=== PATIENT | male | born 1945 | race Caucasian/White ===

== ENCOUNTER 2016-11-02 09:17 | Emergency (ER) | payer OTHER ==
[2016-11-02 09:56] LABS: MANUAL DIFF NEEDED? NO
[2016-11-02 10:02] LABS: BASO% 0.6 % (0.0-0.8); EOS# 0.36 X1000 (0.0-0.7); EOS% 3.1 % (0.0-10.0); HEMATOCRIT 48.8 % (42.0-52.0); IMM GRAN# 0.04 X1000 (0.0-0.04); IMM GRAN% 0.3 % (0.0-0.5); LYMPH# 2.15 X1000 (1.2-3.4); LYMPH% 18.3 % (20.5-51.1); MCH 33.7 PG (27-31); MCHC 34.8 g/dL (33-37); MCV 96.6 FL (81-99); MONO# 0.98 X1000 (0.11-0.59); MONO% 8.3 % (1.7-9.3); MPV 11.8 FL (7.4-10.4); NEUT% 69.4 % (42.2-75.2); PLT 172 X1000 (130-400); RBC 5.05 XMIL (4.7-6.1)
[2016-11-02 10:35] LABS: AGAP 13; ALBUMIN 4.1 g/dL (3.5-5.0); ALKALINE PHOSPHATASE 90 U/L (32-122); AMYLASE 87 U/L (20-200); BUN 9 mg/dL (8-22); CALCIUM 9.5 mg/dL (8.8-10.2); CHLORIDE 105 mmol/L (98-107); COSMO 286; GOT 34 U/L (10-34); GPT 39 U/L (10-44); LIPASE 59 U/L (13-60); POTASSIUM 4.4 mmol/L (3.5-5.1); SODIUM 142 mmol/L (136-145); TCO2 24 mmol/L (25-35); TOTAL BILIRUBIN 1.03 mg/dL (0.20-1.00); TOTAL PROTEIN 7.2 g/dL (6.3-8.3)
[2016-11-02] MEDS ORDERED: PROTONIX IV ONE (10:54)
[2016-11-02] MEDS ORDERED: SODIUM CHLORIDE 0.9% INJ ONE (10:54)
[2016-11-02] MEDS ORDERED: ZOFRAN IV ONE (10:54)
[2016-11-02] MEDS ORDERED: MORPHINE IV ONE ×2 (10:54→14:22)
--- NOTE | 2016-11-02 11:10 | PROVIDER DOCUMENTATION ---
HPI-Abdominal Pain/GI Problem - General Chief Complaint: General Adult Stated Complaint: HEADACHE/STOMACH PROBLEMS Time Seen by Provider: 11/02/16 10:30 Source: patient Allergies/Adverse Reactions: Patient Allergies Allergy/AdvReac Type Severity Reaction Status Date / Time Penicillins Allergy Unknown Unknown Verified 11/02/16 11:03 Home Medications: Home Medication List Medication Instructions Recorded Confirmed Last Taken Type Acebutolol HCl 400 mg PO DAILY 05/10/13 11/02/16 11/02/16 History Dutasteride [Avodart] 0.5 mg PO DAILY 05/10/13 11/02/16 11/02/16 History LISINOpril [Prinivil] 10 mg PO DAILY 05/10/13 11/02/16 11/02/16 History Levothyroxine [Synthroid] 125 microgm PO DAILY 05/10/13 11/02/16 11/02/16 History Metformin 500 mg PO DAILY 05/10/13 11/02/16 11/02/16 History Montelukast [Singulair] 10 mg PO DAILY 05/10/13 11/02/16 11/02/16 History Omeprazole 20 mg PO DAILY 05/10/13 11/02/16 11/02/16 History Meloxicam [Mobic] 7.5 mg PO DAILY 10/18/15 11/02/16 11/02/16 History Fexofenadine [Leda] 180 mg PO DAILY 04/20/16 11/02/16 11/02/16 History Docusate Sodium [Colace] 100 mg PO BID #60 capsule 04/22/16 11/02/16 11/02/16 Rx Ondansetron [Zofran] 4 mg PO Q6H PRN PRN #20 tablet 11/02/16 Unknown Rx Sucralfate [Carafate] 1 gm PO 4XDAY #40 tablet 11/02/16 Unknown Rx - History of Present Illness-ABD Nature of Presenting Problems: 71 y/o M with history of HTN, DM, GERD, hypothyroidism, diverticulitis, gastritis, seasonal allergies presents with complaints of ANTONIO x 3 days and epigastric pain x 2 weeks. Epigastric pain x 2 weeks has been intermittent and worse with eating. He reports taking NSAIDs over the past several months since having a Right TKA. He d/c'd NSAIDs 6 days ago. He saw his GI, Dr. Caba, who rx'd Cipro and Flagyl. He d/c'd flagyl at the recommendation of PCP, which did help some with belching and stomach discomfort. Associated symptoms include loose stools, intermittent black stools, and nausea. Denies vomiting, fever. Last BM this morning was loose. He is not on any blood thinning medications. ANTONIO x 3 days is described as intermittent aching sensation across forehead. States the ANTONIO is worse at night and with bending over. He reports some sneezing and intermittent vertigo with certain positions over the past several days as well. Denies any numbness, weakness, history of CVA, head trauma. Abdominal Pain Onset Location: reports: epigastric Pain Radiation: reports: no radiation Quality of Pain: reports: aching Severity in ED: reports: moderate Onset/Duration: reports: other (2 weeks) Timing: reports: still present, intermittent Activities at Onset: reports: other (NSAIDs) Exposure to sick contacts?: No Modifying Factors: improves with: nothing Associated Symptoms: reports: dizziness (vertigo), nausea. denies: chest pain, cough, diaphoresis, diarrhea, fever/chills, sinus congestion/drainage, sensory/ motor loss, vomiting, weakness, trouble walking Last BM: this morning Dark Stools Present?: reports: none noticed Rectal Bleeding: reports: none Rectal Pain: reports: none Emesis Description: reports: none Review of Systems - Adult - REVIEW OF SYSTEMS - ADULT Constitutional: reports: no symptoms reported. denies: chills, fever Eyes: reports: no symptoms reported. denies: decreased vision, blurred vision, double vision Ears, Nose, Mouth & Throat: reports: other (sneezing, history of seasonal allergies). denies: ear pain, hearing loss, tinnitus Cardiovascular: reports: no symptoms reported. denies: chest pain Respiratory: reports: no symptoms reported. denies: cough, shortness of breath , wheezing Gastrointestinal: reports: see HPI Genitourinary: reports: no symptoms reported. denies: dysuria, flank pain, hematuria Musculoskeletal: reports: no symptoms reported. denies: bone pain, back pain Integumentary: reports: no symptoms reported. denies: itching, rash Neurological: reports: dizziness/vertigo, headache/migraines. denies: loss of balance, numbness, paresthesia, seizure, slurred speech, syncope, tremors Psychiatric: reports: no symptoms reported Endocrine: reports: no symptoms reported Hematologic/Lymphatic: reports: no symptoms reported Allergic/Immunologic: reports: allergic rhinitis All Other Systems: Reviewed and Negative Past History - Adult - PAST MEDICAL HISTORY-ADULT Review of Records: reports: Nursing Assessment Review, Medications Reviewed Cardiovascular: reports: HTN, hyperlipidemia Respiratory: reports: asthma Endocrine/Immune: reports: thyroid disorder - PRIOR SURGERIES/PROCEDURES Surgical/Procedure History: reports: EGD, colonoscopy, orthopedic (extremity), back/neck - IMMUNIZATION STATUS Childhood Immunizations: See Nurse Assessment Flu Vaccine: See Nurse Assessment - FAMILY HISTORY Family History: reviewed, not pertinent Physical Exam-General - PHYSICAL EXAM-ADULT Initial Vital Signs Reviewed: Yes - CONSTITUTIONAL General Appearance: appears well, alert, no apparent distress - EYES Eyes: PERRL/EOMI, pink conjunctivae - HEAD, EARS, NOSE, MOUTH & THROAT HENMT: normocephalic/atraumatic, moist mucous membranes, normal ENT inspection, other (vertigo reproducible with moving patient to supine position) - NECK Neck: non-tender, full range of motion, supple - RESPIRATORY Respiratory: chest non-tender, lungs clear, normal breath sounds, no pleuratic chest pain, no respiratory distress, no accessory muscle use - CARDIOVASCULAR Cardiovascular: normal peripheral pulses, regular rate, rhythm, no edema, no gallop, no JVD - GASTROINTESTINAL (ABDOMEN) Abdominal Exam: normal bowel sounds, soft, other (epigastric tenderness (mild)) - LYMPHATIC Lymphatic: no adenopathy - MUSCULOSKELETAL Back Exam: normal inspection, no CVA tenderness, no vertebral tenderness Extremity: normal range of motion, non-tender, normal gait, normal inspection, no pedal edema, no calf tenderness, normal capillary refill - SKIN Integumentary: normal color, normal turgor, warm/dry - NEUROLOGIC Neurologic: planning specialist II-XII nml as tested, grossly normal, no motor/sensory deficits . negative: abnormal gait, aphasia, EOM palsy, facial droop, focal weakness, motor weakness, sensory deficit - PSYCHIATRIC Psych/Mental Status: normal mood/affect, normal thought content, normal thought process, oriented x 3 Progress - PLAN OF CARE/RESULTS Progress/Plan/Lab Results: Laboratory Tests 11/02/16 11/02/16 11/02/16 09:35 09:35 09:35 WBC 11.74 H RBC 5.05 Hgb 17.0 Hct 48.8 MCV 96.6 MCH 33.7 H MCHC 34.8 RDW Std Deviation 12.8 Plt Count 172 MPV 11.8 H Immature Gran % (Auto) 0.3 Neut % (Auto) 69.4 Lymph % (Auto) 18.3 L [place] % (Auto) 8.3 Eos % (Auto) 3.1 Baso % (Auto) 0.6 Immature Gran # (Auto) 0.04 Neut # (Auto) 8.14 H Lymph # (Auto) 2.15 [place] # (Auto) 0.98 H Eos # (Auto) 0.36 Baso # (Auto) 0.07 Sodium 142 Potassium 4.4 Chloride 105 Carbon Dioxide 24 L Anion Gap 13 BUN 9 Creatinine 0.8 Estimated GFR/1.73 m2 > 60 BUN/Creatinine Ratio 11 Glucose 181 H Calculated Osmolality 286 Calcium 9.5 Total Bilirubin 1.03 H AST 34 ALT 39 Alkaline Phosphatase 90 Troponin T < 0.010 Total Protein 7.2 Albumin 4.1 Globulin 3.1 Albumin/Globulin Ratio 1.3 Amylase 87 Lipase 59 Urine Source Urine Color Urine Turbidity Urine pH Ur Specific [place] Urine Protein Ur Glucose (Stick) Ur Ketones (Stick) Urine Blood Urine Nitrite Urine Bilirubin Urobilinogen Dipstick Urine Leukocytes Urine WBC (Auto) Urine RBC (Auto) U Epithel Cells (Auto) Urine Bacteria (Auto) 11/02/16 12:24 WBC RBC Hgb Hct MCV MCH MCHC RDW Std Deviation Plt Count MPV Immature Gran % (Auto) Neut % (Auto) Lymph % (Auto) [place] % (Auto) Eos % (Auto) Baso % (Auto) Immature Gran # (Auto) Neut # (Auto) Lymph # (Auto) [place] # (Auto) Eos # (Auto) Baso # (Auto) Sodium Potassium Chloride Carbon Dioxide Anion Gap BUN Creatinine Estimated GFR/1.73 m2 BUN/Creatinine Ratio Glucose Calculated Osmolality Calcium Total Bilirubin AST ALT Alkaline Phosphatase Troponin T Total Protein Albumin Globulin Albumin/Globulin Ratio Amylase Lipase Urine Source CLEAN CATCH Urine Color YELLOW Urine Turbidity CLEAR Urine pH 5.5 Ur Specific [place] 1.014 Urine Protein NEGATIVE Ur Glucose (Stick) NEGATIVE Ur Ketones (Stick) NEGATIVE Urine Blood NEGATIVE Urine Nitrite NEGATIVE Urine Bilirubin NEGATIVE Urobilinogen Dipstick NORMAL Urine Leukocytes NEGATIVE Urine WBC (Auto) <10 Urine RBC (Auto) <10 U Epithel Cells (Auto) <10 Urine Bacteria (Auto) NEGATIVE Orders Category Date Time Status Orthostatic Vital Signs NOW Care 11/02/16 10:54 Active Saline Loc DIRECTED Care 11/02/16 09:32 Active NPO Diet 11/02/16 09:[address] ABD/PELVIS W/ IV CONT ONLY [CT] Stat Exams 11/02/16 11:17 Draft HEAD W/O CONTRAST [CT] Stat Exams 11/02/16 10:52 Taken AMYLASE [CHEM] Stat Lab 11/02/16 09:35 Completed CBC WITH ELECTRONIC DIFF [HEME] Stat Lab 11/02/16 09:35 Completed COMPREHENSIVE METABOLIC PANEL [CHEM] Stat Lab 11/02/16 09:35 Completed LIPASE [CHEM] Stat Lab 11/02/16 09:35 Completed OCCULT BLOOD SCREENING [STOOL] Stat Lab 11/02/16 10:30 Completed TROPONIN T Stat Lab 11/02/16 09:35 Completed URINALYSIS W/POSS RFLX CULT [URINALYSIS] Stat Lab 11/02/16 12:24 Completed Morphine Med 11/02/16 10:54 Discontinued 2 mg IV NOW ONE Ondansetron [Zofran] Med 11/02/16 10:54 Discontinued 4 mg IV NOW ONE Pantoprazole [Protonix] Med 11/02/16 10:54 Discontinued 40 mg IV NOW ONE Sodium Chloride 0.9% Med 11/02/16 10:54 Discontinued 10 ml INJ NOW ONE EKG [EKG] Stat Ther 11/02/16 10:55 Ordered Vital Signs Temp Pulse Pulse Pulse Pulse Resp BP 11/02/16 11:28 78 78 67 11/02/16 09:29 98.2 F 73 20 137/98 BP BP BP Pulse Ox 11/02/16 11:28 155/81 141/101 141/92 11/02/16 09:29 98 Penicillins Allergy (Unknown, Verified 11/02/16 11:03) Unknown Acebutolol HCl 400 mg PO DAILY 05/10/13 Dutasteride [Avodart] 0.5 mg PO DAILY 05/10/13 LISINOpril [Prinivil] 10 mg PO DAILY 05/10/13 Levothyroxine [Synthroid] 125 microgm PO DAILY 05/10/13 Metformin 500 mg PO DAILY 05/10/13 Montelukast [Singulair] 10 mg PO DAILY 05/10/13 Omeprazole 20 mg PO DAILY 05/10/13 Meloxicam [Mobic] 7.5 mg PO DAILY 10/18/15 Fexofenadine [Leda] 180 mg PO DAILY 04/20/16 Docusate Sodium [Colace] 100 mg PO BID #60 capsule 04/22/16 Dietary Diet NPO Start TueNov 02 0932 Laboratory 11/02/16 11/02/16 11/02/16 12:24 09:35 09:35 WBC 11.74 H RBC 5.05 Hgb 17.0 Hct 48.8 MCV 96.6 MCH 33.7 H MCHC 34.8 RDW Std Deviation 12.8 Plt Count 172 MPV 11.8 H Immature Gran % (Auto) 0.3 Neut % (Auto) 69.4 Lymph % (Auto) 18.3 L [place] % (Auto) 8.3 Eos % (Auto) 3.1 Baso % (Auto) 0.6 Immature Gran # (Auto) 0.04 Neut # (Auto) 8.14 H Lymph # (Auto) 2.15 [place] # (Auto) 0.98 H Eos # (Auto) 0.36 Baso # (Auto) 0.07 Sodium Potassium Chloride Carbon Dioxide Anion Gap BUN Creatinine Estimated GFR/1.73 m2 BUN/Creatinine Ratio Glucose Calculated Osmolality Calcium Total Bilirubin AST ALT Alkaline Phosphatase Troponin T < 0.010 Total Protein Albumin Globulin Albumin/Globulin Ratio Amylase Lipase Urine Source CLEAN CATCH Urine Color YELLOW Urine Turbidity CLEAR Urine pH 5.5 Ur Specific [place] 1.014 Urine Protein NEGATIVE Ur Glucose (Stick) NEGATIVE Ur Ketones (Stick) NEGATIVE Urine Blood NEGATIVE Urine Nitrite NEGATIVE Urine Bilirubin NEGATIVE Urobilinogen Dipstick NORMAL Urine Leukocytes NEGATIVE Urine WBC (Auto) <10 Urine RBC (Auto) <10 U Epithel Cells (Auto) <10 Urine Bacteria (Auto) NEGATIVE 11/02/16 09:35 WBC RBC Hgb Hct MCV MCH MCHC RDW Std Deviation Plt Count MPV Immature Gran % (Auto) Neut % (Auto) Lymph % (Auto) [place] % (Auto) Eos % (Auto) Baso % (Auto) Immature Gran # (Auto) Neut # (Auto) Lymph # (Auto) [place] # (Auto) Eos # (Auto) Baso # (Auto) Sodium 142 Potassium 4.4 Chloride 105 Carbon Dioxide 24 L Anion Gap 13 BUN 9 Creatinine 0.8 Estimated GFR/1.73 m2 > 60 BUN/Creatinine Ratio 11 Glucose 181 H Calculated Osmolality 286 Calcium 9.5 Total Bilirubin 1.03 H AST 34 ALT 39 Alkaline Phosphatase 90 Troponin T Total Protein 7.2 Albumin 4.1 Globulin 3.1 Albumin/Globulin Ratio 1.3 Amylase 87 Lipase 59 Urine Source Urine Color Urine Turbidity Urine pH Ur Specific [place] Urine Protein Ur Glucose (Stick) Ur Ketones (Stick) Urine Blood Urine Nitrite Urine Bilirubin Urobilinogen Dipstick Urine Leukocytes Urine WBC (Auto) Urine RBC (Auto) U Epithel Cells (Auto) Urine Bacteria (Auto) Patient's symptoms consistent with gastritis. H/H WNL. Hemoccult negative. CT abd/pelvis neg. Will give carafate and have patient continue home omeprazole and follow up with his industrial nurse, Dr. Caba. For ANTONIO, normal neuro exam and negative CT. Patient has tramadol at home. Advised him to avoid NSAIDs and follow up with PCP. - CT/MRI 1 CT Study: Abdomen, Pelvis CT Results: cirrhosis. no acute process 2 CT Study: Head CT Results: NAD Departure - Departure Time of Disposition Order: 14:09 DIAGNOSIS: Epigastric abdominal pain Headache Qualifiers: Headache type: unspecified Headache chronicity pattern: unspecified pattern Intractability: not intractable Qualified Code(s): R51 - Headache Disposition: HOME 01 Certified Medical Emergency: Emergent Condition: Good Additional Instructions: ED Follow Up Instructions: You have been treated by a care provider in the Emergency Department. These instructions are being provided to you so you can have an understanding of how to care for yourself upon discharge. Upon discharge from the Emergency Department, you are responsible for making arrangements for follow-up care by a physician of your choice. Take all prescribed medications as directed. Return to the Emergency Department immediately for any new or worsening symptoms. You may call the Physician Referral phone number at [phone] to obtain a list of Physicians who are taking new patients. Prescriptions: Sucralfate [Carafate] 1 gm PO 4XDAY #40 tablet Ondansetron [Zofran] 4 mg PO Q6H PRN PRN #20 tablet PRN Reason: Nausea Referrals: Lucas Schaefer [Primary Care Provider] - Instructions: Migraine Headache, [id number] Attestation - Physician/ SHUN Attestation Patient care was provided by Advanced Practice Provider:: Yes Advanced Practice Provider:: Tomasa Payne Advanced Practice Provider documentation review:: The Mid-level provider documentation, treatment plan and medical decision making was reviewed by the physician who agrees with all treatment and medical decision making by the MLP.
--- NOTE | 2016-11-02 11:54 | ED EKG INTERP ---
EKG Interpretation - EKG Time of EKG reading by physician:: 11:10 EKG Read and Signed by:: Nishant Triana EKG Interpretation (*Must complete 3 of following elements*): Normal Rate: 67 Rhythm: normal sinus rhythm [place]: normal Attestation - Scribe Verification/Attestation Scribe:: Paolo Glynn Acting as Scribe for:: Nishant Triana Scribe documention review:: This chart was documented by a scribe and accurately reflects the service the provider performed and the decisions made by the provider. Physician Attestation - Physician Attestation I, the provider, attest to the following statement:: Nishant Triana Physician documentation Attestation:: This documentation recorded by the scribe accurately reflects the service I personally performed and the decisions made by me.
[2016-11-02 12:55] LABS: URINE CULTURE NEEDED? NO; URINE MICRO REVIEW NEEDED? NO; URINE SOURCE CLEAN CATCH
[2016-11-02 13:04] LABS: BILIRUBIN URINE NEGATIVE (NEGATIVE); BLOOD URINE NEGATIVE (NEGATIVE); COLOR YELLOW; GLUCOSE URINE NEGATIVE (NEGATIVE); LEUKOCYTES URINE NEGATIVE (NEGATIVE); NITRITE URINE NEGATIVE (NEGATIVE); PH URINE 5.5; PROTEIN URINE NEGATIVE (NEGATIVE); SP GRAVITY URINE 1.014; TURBIDITY URINE CLEAR (CLEAR); UROBILINOGEN URINE NORMAL (NORMAL)
[2016-11-02 13:07] LABS: UR EPITHELIAL CELLS <10 /HPF (<10); URINE BACTERIA NEGATIVE /HPF; URINE RBC <10 /HPF (<10); URINE WBC <10 /HPF (<10)
--- NOTE | 2016-11-02 13:57 | Diag Imaging Result Document ---
PROCEDURE NAME: CT ABD/PELVIS W/ IV CONT ONLY - 11/02/2016 CT OF THE ABDOMEN WITH INTRAVENOUS CONTRAST: FINDINGS: The visualized portion of the chest has not changed significantly since 10/18/2015. The liver is hypodense. There is lobulation of the hepatic contour suggesting cirrhosis. The spleen is not enlarged. The adrenal glands and pancreas are within normal limits. There are multiple small cortical renal cysts particularly on the right side. There is at least 1 caliceal stone on the right measuring 5 mm in diameter. This was also present at the time of the previous study. There are atherosclerotic calcifications in the aorta. The mesenteric and renal arteries are patent. There is gas and stool in the colon without dilatation. The small bowel is not distended. There is diverticulosis coli in the descending colon. The appendix is normal in appearance. There is no significant adenopathy. CT OF THE PELVIS WITH INTRAVENOUS CONTRAST: FINDINGS: There is no evidence of free fluid or significant adenopathy. There is no evidence of active diverticulitis. IMPRESSION: 1. Cirrhosis. 2. Diverticulosis coli. 3. Right nephrolithiasis.
[2016-11-02 14:46] VITALS: BP 160/104
--- NOTE | 2016-11-02 20:39 | Diag Imaging Result Document ---
PROCEDURE NAME: HEAD W/O CONTRAST - 11/02/2016 CT OF THE HEAD WITHOUT CONTRAST: FINDINGS: There is no evidence of mass effect, bleed, or abnormal extra-axial fluid collection. There is a lacune in the inferior basal ganglia on the left. No previous studies are available for comparison. There is no evidence of acute bony disease. There is mucosal thickening in the left sphenoid sinus. IMPRESSION: Chronic left sphenoid sinusitis. Chronic microvascular disease. No evidence of acute disease.
--- NOTE | 2016-11-03 05:22 | EKG Report ---
Test Performed on : 11/02/2016 11:09:47 AM Test Reason : epigastric pain Blood Pressure : / mmHG Vent. Rate : 067 BPM Atrial Rate : 067 BPM P-R Int : 142 ms QRS Dur : 086 ms QT Int : 402 ms P-R-T Axes : -03 -19 044 degrees QTc Int : 424 ms Normal sinus rhythm. 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
== END 2016-11-02 14:47 | disposition home or self-care (01) ==
LOC: ED 09:17
DX: R10.13 Epigastric pain (principal); R51 Headache; K74.60 Unspecified cirrhosis of liver; K57.90 Diverticulosis of intestine, part unspecified, without perforation or abscess without bleeding; N20.0 Calculus of kidney; R19.7 Diarrhea, unspecified; R19.5 Other fecal abnormalities; R11.0 Nausea; Z79.899 Other long term (current) drug therapy; R06.7 Sneezing; R42 Dizziness and giddiness; R10.816 Epigastric abdominal tenderness; I10 Essential (primary) hypertension; E78.5 Hyperlipidemia, unspecified; E11.9 Type 2 diabetes mellitus without complications; K21.9 Gastro-esophageal reflux disease without esophagitis; E03.9 Hypothyroidism, unspecified; Z96.651 Presence of right artificial knee joint
CPT/HCPCS: 70450; 74177; 80053; 81001; 82150; 82270; 83690; 84484; 85025; 93005; C9113; J2270; J2405; Q9967; S0164